=== PATIENT | female | born 1980 | race African-American/Black ===

== ENCOUNTER 2018-05-24 02:00 | Emergency (ER) | payer MEDICAID ==
[~2018-05-24] VITALS: Ht 165.1 cm; Wt 79.4 kg
[2018-05-24 02:06] VITALS: BP 120/60
[2018-05-24] MEDS ORDERED: Morphine Sulfate 4mg/ml Inj (IV USE ONLY) IVP ONE (02:30)
[2018-05-24] MEDS ORDERED: NS 55ml IV ONE (02:31)
--- NOTE | 2018-05-24 02:34 | Emergency Room Report ---
History of Present Illness General Chief Complaint: Female Urogenital Problems Source: Patient Present Illness HPI Is a 38-year-old female who had a previous laparoscopic surgery for hernia and of appendicitis. She present with chief complaint of abdominal pain. Mostly right lower quadrant and umbilical. Onset for last 2-3 days. Pain is severe 10 out of 10. No radiation. Has some loose stool. No vomiting. Has nausea. No fever chills. Nothing made it better. Any movement made it worse. Allergies: Coded Allergies: PENICILLINS (Verified Allergy, Unknown, 05/24/18) Patient History Past Medical History: see triage record, old chart reviewed Past Surgical History: appy, other - Hernia Pertinent Family History: none Social History: Denies: smoking Last Menstrual Period: unk Now: No Immunizations: other Reviewed Nursing Documentation: PMH: Agreed; PSxH: Agreed Review of Systems Eye: Denies: eye pain, blurred vision ENT: Denies: ear pain, nose congestion, throat swelling Respiratory: Denies: cough, shortness of breath Cardiovascular: Denies: chest pain, palpitations Gastrointestinal: Reports: abdominal pain, diarrhea, nausea; Denies: vomiting Musculoskeletal: Denies: back pain, joint pain Skin: Denies: rash Neurological: Denies: headache, numbness Endocrine: Denies: increased thirst, increased urine Hematologic/Lymphatic: Denies: easy bruising All Other Systems: negative except mentioned in HPI Physical Exam Vital Signs Date Time Temp Pulse Resp B/P (MAP) Pulse Ox O2 Delivery O2 Flow Rate FiO2 05/24/18 02:04 100.2 92 16 126/67 95 100.2 vitals with low-grade fever Sp02 EP Interpretation: reviewed, normal General Appearance: well appearing, no apparent distress, alert Head: normocephalic, atraumatic Eyes: bilateral eye PERRL, bilateral eye EOMI ENT: hearing grossly normal, normal pharynx Neck: full range of motion, supple, no meningismus Respiratory: chest non-tender, lungs clear, normal breath sounds Cardiovascular #1: regular rate, rhythm, no murmur Gastrointestinal: no mass, no organomegaly, no bruit, non-distended, abnormal bowel sounds - Hyperactive, tenderness - Right lower quadrant Musculoskeletal: back normal, gait/station normal, normal range of motion Neurologic: alert, oriented x3 Psychiatric: mood/affect normal Skin: warm/dry Medical Decision Making Diagnostic Impression: Primary Impression: Abdominal pain Qualified Codes: R10.84 - Generalized abdominal pain Additional Impressions: Dysfunctional uterine bleeding UTI (urinary tract infection) Qualified Codes: N30.00 - Acute cystitis without hematuria ER Course This with abdominal pain. No evidence of obstruction or acute abdomen. Patient felt better now. We'll discharge home. She is currently on double and said that she's been having some breakthrough bleeding. Lab Results Impression labs unremarkable CT/MRI/US Diagnostic Results CT/MRI/US Diagnostic Results : Imaging Test Ordered: CT abdomen and pelvis Impression Read by radiologist. No acute abdomen or pelvic pathology. No obstruction. Last Vital Signs Date Time Temp Pulse Resp B/P (MAP) Pulse Ox O2 Delivery O2 Flow Rate FiO2 05/24/18 02:04 100.2 92 16 126/67 95 100.2 Status: improved Disposition: HOME, SELF-CARE Condition: Improved Scripts Cephalexin* (KEFLEX*) 500 Mg Capsule 500 MG ORAL TID, #21 CAP Prov: KANDIS KIRK M.D. 05/24/18 Hydrocodone/Acetaminophen 5-325* (HYDROCODONE/ACETAMINOPHEN 5-325*) 1 Each Tablet 1 TAB ORAL Q6H PRN for For Pain, #20 TAB 0 Refills Prov: KANDIS KIRK M.D. 05/24/18 Patient Instructions: Urinary Tract Infection Additional Instructions: Follow-up with your DrYisel in 2 to 3 days and not better. Return if symptom worsen. KANDIS KIRK M.D. May 24, 2018 02:34
[2018-05-24 02:40] LABS: BILIRUBIN, URINE NEGATIVE (NEGATIVE); COLOR,URINE PALE YELLOW; GLUCOSE, URINE (UA) NEGATIVE (NEGATIVE); KETONES,URINE NEGATIVE (NEGATIVE); LEUKOCYTE ESTERASE ,URINE 1+ (NEGATIVE); NITRITE,URINE NEGATIVE (NEGATIVE); PH,URINE 8 (4.5-8.0); PROTEIN,URINE 2+ (NEGATIVE); UROBILINOGEN,URINE 1 MG/DL (0.0-1.0)
[2018-05-24 02:47] LABS: APPEARANCE,URINE SLIGHTLY CLOUDY
[2018-05-24 02:58] LABS: BASOPHILS % (AUTO) 0.6 % (0.0-2.0); EOSINOPHILS % (AUTO) 1.5 % (0.0-3.0); HEMATOCRIT 39.6 % (37.0-47.0); HEMOGLOBIN 12.7 G/DL (12.0-16.0); LYMPHOCYTES % (AUTO) 26.8 % (20.0-45.0); MEAN CORPUSCULAR VOLUME 88 FL (80-99); MONOCYTES % (AUTO) 10.9 % (1.0-10.0); NEUTROPHILS % (AUTO) 60.3 % (45.0-75.0); PLATELET COUNT 355 K/UL (150-450); RED BLOOD COUNT 4.49 M/UL (4.20-5.40); RED CELL DISTRIBUTION WIDTH 12.1 % (11.6-14.8); WHITE BLOOD COUNT 9.1 K/UL (4.8-10.8)
[2018-05-24 03:10] LABS: ANION GAP 8 mmol/L (5-15); BLOOD UREA NITROGEN 11 mg/dL (7-18); CALCIUM 8.9 MG/DL (8.5-10.1); CARBON DIOXIDE 26 MMOL/L (21-32); CHLORIDE 105 MMOL/L (98-107); POTASSIUM 3.6 MMOL/L (3.5-5.1); SODIUM 139 MMOL/L (136-145)
[2018-05-24 03:14] LABS: ALANINE AMINOTRANSFERASE 28 U/L (12-78); ALBUMIN 3.6 G/DL (3.4-5.0); ALBUMIN/GLOBULIN RATIO 0.8 (1.0-2.7); ALKALINE PHOSPHATASE 49 U/L (46-116); ASPARTATE AMINO TRANSFERASE 21 U/L (15-37); BILIRUBIN,TOTAL 0.6 MG/DL (0.2-1.0)
[2018-05-24 03:47] VITALS: BP 118/64
[2018-05-24] MEDS ORDERED: cefTRIAXone 1 GM in NS 55 ML IVPB ONE (04:15)
[2018-05-24] MEDS ORDERED: HYDROCODON-ACE1 EA15 ORAL (04:45)
[2018-05-24] MEDS ORDERED: CEPHALEXIN500 MG ORAL (04:45)
[2018-05-24 05:13] VITALS: BP 111/65
[2018-05-24 05:14] VITALS: BP 111/65
[2018-05-24] MEDS ORDERED: Norco 5mg/325mg tab ORAL ONE (05:15)
--- NOTE | 2018-05-24 10:11 | Diagnostic Imaging Report ---
Indication: Abdominal pain for 3 days Technique: Spiral acquisitions obtained through the abdomen and pelvis. No oral contrast utilized, per emergency room physician request No IV contrast utilized, per referring physician request.. Multiplanar reconstructions were generated. Total dose length product 693.9 mGycm. CTDIvol(s) 14.56 mGy. Dose reduction achieved using automated exposure control Comparison: None Findings: The appendix is normal. No evidence of diverticulosis or diverticulitis. No small bowel distention. No free or loculated intraperitoneal air or fluid is evident. The distal esophagus, stomach, duodenum are unremarkable. The lack of IV contrast limits assessment of solid organs. The liver, gallbladder, bile ducts, pancreas are unremarkable. Surgical clips or embolic coils are seen adjacent to the spleen and stomach. The adrenals, kidneys, ureters are unremarkable. The bladder is unremarkable. No pelvic mass or adenopathy. Stranding densities throughout the subcutaneous fat likely reflect prior abdominoplasty. The included lung bases demonstrate some atelectasis on the right. The bones are unremarkable Impression: No acute abnormality Stranding densities throughout the abdominal subcutaneous fat, likely postsurgical Minimal right basilar atelectasis Evidence of prior left upper quadrant surgery This agrees with the preliminary interpretation provided overnight by [facility] teleradiology service. The CT scanner at [facility] is accredited by the [employer] and the scans are performed using protocols designed to limit radiation exposure to as low as reasonably achievable to attain images of sufficient resolution adequate for diagnostic evaluation.
== END 2018-05-24 05:16 | disposition home or self-care (01) ==
LOC: EMR 02:30
DX: N30.00 Acute cystitis without hematuria (principal); N93.8 Other specified abnormal uterine and vaginal bleeding; Z88.0 Allergy status to penicillin
CPT/HCPCS: 36415; 74176; 80053; 81003; 81025; 83690; 85025; 87086; 96361; 96365; 96375; 99285; J0696; J2270; J2405